=== PATIENT | female | born 1950 | race Caucasian/White ===

== ENCOUNTER 2017-12-03 14:37 | Inpatient (IN) | payer BC, SELFPAY ==
[2017-12-03] VITALS (9 sets, daily range): BP systolic 109–152; BP diastolic 62–77; PULSE 54–76; RESP 15–20; TEMP 35.3–36.7; O2SAT 93–95; BMI 40.4; BMI 39.9
--- NOTE | 2017-12-03 15:13 | CT_ITS ---
STUDY: CT BRAIN WITHOUT CONTRAST REASON FOR EXAM: Female, 67 years old. Left-sided numbness and weakness. Unsteady gait. RADIATION DOSAGE (If Supplied By Facility): CTDIvol = ( 44.99 ) mGy, DLP = ( 829.85 ) mGycm TECHNIQUE: Transaxial CT imaging of the brain was performed without administration of intravenous contrast material. Individualized dose optimization techniques were used for this CT. COMPARISON: None. FINDINGS: Normal soft tissue structures. There is hyperostosis frontalis internus. There is mild cerebral atrophy with widening of the extra-axial spaces and ventricular dilatation. Normal white matter tracts of the cerebral hemispheres. Normal basal ganglia and thalami. Normal brainstem. Normal cerebellum. There is no intracranial hemorrhage. There are no findings of an acute ischemic infarction. Atherosclerotic calcification of the cavernous portions of the internal carotid arteries bilaterally. Normal visualized paranasal sinuses. CT/Brain/Head without Contrast IMPRESSION: Chronic involutional changes of the brain. Electronically Signed: Wei Kohler MD at 15:56 EST Tel [phone], Service support ,
--- NOTE | 2017-12-03 15:14 | EKG12_ITS ---
Test Reason : NEURO SX Blood Pressure : / mmHG Vent. Rate : 058 BPM Atrial Rate : 058 BPM P-R Int : 174 ms QRS Dur : 086 ms QT Int : 424 ms P-R-T Axes : 036 013 033 degrees QTc Int : 416 ms Sinus bradycardia Otherwise normal ECG Confirmed by GEORGIA LAWSON, BUNNY ([id number]), editor in chief ZULEYKA PRAKASH ([id number]) on 12/10/2017 8:32:14 AM Referred By: CARLEY Confirmed By:BUNNY HO MD
[2017-12-03] MEDS: 0.9% Normal Saline 1,000 ML 150 ML IV (15:30)
--- NOTE | 2017-12-03 15:31 | NURSING ---
NO OLD EKGS
--- NOTE | 2017-12-03 15:35 | ED.VISSUMM ---
- ER Visit Summary Date of Service: 12/03/17 Chief Complaint: Neuro symptoms History of Present Illness: The patient is a 67 F who states that 3 weeks ago she was seen at [facility] in [place] with left-sided neck pain. CT was reportedly negative. She went to her chiropractor and shortly after an adjustment developed left-sided numbness and difficulty sensing hot and cold on her right side. Patient went back to the ER and was admitted for CT and MRI imaging. Patient states her symptoms resolved after approximately 48 hours. She was told she did not have evidence of a stroke. She recently went to [place] and returned home yesterday. While on the plane she developed left-sided neck pain followed by numbness and weakness the left side of her body, hot and cold decreased sensation on the right, and difficulty with gait. Her friend describes her trying to walk as swinging her legs from the hips. This throws her off balance. The also noted left eye droop earlier today that is now improved. Patient did not feel comfortable driving home with the symptoms today so they presented to the ER for evaluation. Physical Examination: Vital signs are significant for blood pressure 152/77. Head and neck examination is grossly unremarkable. Heart is regular rate and rhythm. Lung sounds are clear. Abdomen is soft nontender. Neuro exam reveals an NIH score of 1. She receives one point for decreased sensation to light touch in the left leg. Test Results: CBC and coags are normal. Chemistry studies are significant for a BUN of 34 and creatinine 1.32. Glucose is 189. Troponin is less than 0.02. Noncontrast head CT reveals chronic involutional changes. EKG is unremarkable. Emergency Department Course and Treatment: I was able to get records from the hospital in [place]. Patient had CT scans of the head along with CTAs of the head and neck. She also had MRIs of the neck and brain along with MRV's. The only acute abnormality noted was a slight increased uptake at the level of C2. There is no evidence of stroke. Findings were discussed with Dr. Castillo, on-call for neurology. Clinical suspicion at this time for acute stroke is low. The patient, however, has not been able to ambulate correctly and I have concerns about her driving. Patient will be admitted for repeat imaging studies. Patient and friend at bedside are comfortable with this plan. Treatment Plan: [] Disposition: Admit Impression: 1. Reported numbness 2. Difficulty with ambulation This note was generated with [employer] dictation software. It may contain incorrect words, spelling, and punctuation that were not noted in review of the chart prior to signing ED Disposition - Plan for ED Patient: Disposition: Acute Care Hospital [facility] Chief Complaint: Neuro S/Sx
--- NOTE | 2017-12-03 15:39 | ED.DCSUM_ITS ---
- ER Visit Summary Date of Service: 12/03/17 Chief Complaint: Neuro symptoms History of Present Illness: The patient is a 67 F who states that 3 weeks ago she was seen at [facility] in [place] with left-sided neck pain. CT was reportedly negative. She went to her chiropractor and shortly after an adjustment developed left-sided numbness and difficulty sensing hot and cold on her right side. Patient went back to the ER and was admitted for CT and MRI imaging. Patient states her symptoms resolved after approximately 48 hours. She was told she did not have evidence of a stroke. She recently went to [place] and returned home yesterday. While on the plane she developed left- sided neck pain followed by numbness and weakness the left side of her body, hot and cold decreased sensation on the right, and difficulty with gait. Her friend describes her trying to walk as swinging her legs from the hips. This throws her off balance. The also noted left eye droop earlier today that is now improved. Patient did not feel comfortable driving home with the symptoms today so they presented to the ER for evaluation. Physical Examination: Vital signs are significant for blood pressure 152/77. Head and neck examination is grossly unremarkable. Heart is regular rate and rhythm. Lung sounds are clear. Abdomen is soft nontender. Neuro exam reveals an NIH score of 1. She receives one point for decreased sensation to light touch in the left leg. Test Results: CBC and coags are normal. Chemistry studies are significant for a BUN of 34 and creatinine 1.32. Glucose is 189. Troponin is less than 0.02. Noncontrast head CT reveals chronic involutional changes. EKG is unremarkable. Emergency Department Course and Treatment: I was able to get records from the hospital in [place]. Patient had CT scans of the head along with CTAs of the head and neck. She also had MRIs of the neck and brain along with MRV's. The only acute abnormality noted was a slight increased uptake at the level of C2. There is no evidence of stroke. Findings were discussed with Dr. Castillo, on-call for neurology. Clinical suspicion at this time for acute stroke is low. The patient, however, has not been able to ambulate correctly and I have concerns about her driving. Patient will be admitted for repeat imaging studies. Patient and friend at bedside are comfortable with this plan. Treatment Plan: [] Disposition: Admit Impression: 1. Reported numbness 2. Difficulty with ambulation This note was generated with [employer] dictation software. It may contain incorrect words, spelling, and punctuation that were not noted in review of the chart prior to signing ED Disposition - Plan for ED Patient: Disposition: Acute Care Hospital [facility] Chief Complaint: Neuro S/Sx
[2017-12-03 15:41] LABS: Bedside Glucose 180 mg/dL (70-110)
[2017-12-03 15:44] LABS: Absolute Lymphocyte Count 2.58 X10^3/ul (0.83-4.51); Absolute Neutrophil Count 6.6 X10^3/uL (2.0-7.7); Basophil# 0.04 X10^3/uL; Basophil% 0.4 % (0-1); Eosinophils% 2.9 % (0-5); Hematocrit 42.1 % (37-47); Hemoglobin 13.6 g/dl (12.0-15.0); Lymphocyte # 2.58 X10^3/ul (4.0); Lymphocyte % 24.9 % (19-41); Mean Corp Hgb Conc 32.3 g/gl (32-36); Mean Corpuscular Hgb 29.9 pg (27.0-32.0); Mean Corpuscular Volume 92.5 fL (81-99); Mean Platelet Vol. 10.4 fl (6.2-12.0); Monocyte# 0.79 X10^3/uL; Monocyte% 7.6 % (0-10); Neutrophil # 6.62 X10^3/uL (2.7-7.7); Platelet Count 320 K/mm3 (150-450); RBC Distribution Width SD 43.5 fl (35.1-43.9); Red Blood Count 4.55 M/mm3 (4.2-5.4); White Blood Count 10.4 K/mm3 (4.4-11.0)
[2017-12-03 15:45] LABS: POSITIVE COUNT NO; POSITIVE DIFFERENTIAL NO; POSITIVE MORPHOLOGY NO
[2017-12-03 15:53] LABS: Anion Gap 6 (5-15); BUN 34 mg/dL (7-18); BUN/Creat Ratio 25.8 RATIO (10-20); Calcium,Total 9.8 mg/dL (8.5-10.1); Chloride 107 mmol/L (98-107); Creatinine, Serum 1.32 mg/dL (0.55-1.02); EST Glomerular Filtration Rate 43 mL/min (>60); Est Glom Filt Rate - Afr Amer 52 mL/min (>60); Estimated Creatinine Clearance 32.06 ml/min; Glucose 189 mg/dL (70-110); Potassium 3.8 mmol/L (3.5-5.1); Sodium Level 142 mmol/L (136-145)
[2017-12-03 15:55] LABS: Prothrombin Time (Protime)PT. 12.7 SECONDS (11.7-14.9)
[2017-12-03 15:56] LABS: Partial Thromboplast Time 24.8 Seconds (24.1-36.2)
--- NOTE | 2017-12-03 17:16 | NURSING ---
PCU NECK PAIN, LEFT SIDED WEAKNESS UZAIR
--- NOTE | 2017-12-03 18:07 | HP.PCM_ITS ---
Problem List (1) Diabetes mellitus type 2 in obese Status: Chronic (2) Neck pain Status: Chronic (3) Left leg weakness and right numbness Status: Acute (4) Dyslipidemia Status: Chronic (5) Urge urinary incontinence Status: Chronic (6) Hypertension Status: Chronic (7) Hypothyroidism (acquired) Status: Chronic (8) GERD (gastroesophageal reflux disease) Status: Chronic History of Present Illness Date of Admission: 12/03/17 Chief Complaint: Multiple neurological symptoms The patient is a 67 year old F with multiple comorbidities as mentioned above came to [facility] ER for left-sided leg weakness and right-sided numbness. Patient was admitted about [address] [facility] with headache and left-sided neck pain and left-sided numbness and decreased hot and cold sensation on the right side. At that time, patient had CT head and CTA of head and neck which did not show acute abnormality. Besides that, patient also had MRI brain without contrast and MRI C-spine with and without contrast. MRI brain without contrast shows mild nonspecific changes in deep and subcortical white matter suggestive of demyelination possible ischemia.. MRI C-spine shows abnormal T2 signal within cord at C2 level with minimal enhancement suspicion for demyelination Here in the ER, CT brain did not show acute change. EKG sinus bradycardia at 58 bpm. ED physician discussed with Dr. Castillo. [] Past Medical History Past Medical History (Chronic Problems): Chronic Problems Diabetes mellitus type 2 in obese (Chronic) Neck pain (Chronic) Dyslipidemia (Chronic) Urge urinary incontinence (Chronic) Hypertension (Chronic) Hypothyroidism (acquired) (Chronic) GERD (gastroesophageal reflux disease) (Chronic) Allergies Penicillins Allergy (Verified 12/03/17 14:41) Rash Sulfa (Sulfonamide Antibiotics) Allergy (Verified 12/03/17 14:41) Rash Home Medications: Ambulatory Orders Medication Instructions Recorded Aspirin [Aspirin, Baby] 81 mg PO DAILY@0800 12/03/17 Cetirizine HCl [Zyrtec] 10 mg PO QHS 12/03/17 Esomeprazole Mag Trihydrate 40 mg PO DAILY 12/03/17 [Nexium] Fenofibrate,Micronized [Antara] 130 mg PO DAILY 12/03/17 Hydrochlorothiazide [Hctz] 12.5 mg PO DAILY 12/03/17 Insulin Detemir [Levemir FlexPen] 50 mg SQ QHS 12/03/17 Insulin Detemir [Levemir] 20 unit SQ DAILY 12/03/17 Levothyroxine Sodium 75 mcg PO DAILY 12/03/17 Lisinopril [Zestril] 20 mg PO DAILY 12/03/17 Metformin(XR) [Glucophage Xr] 500 mg PO BIDCM 12/03/17 Mometasone Furoate [Nasonex] 1 spray NASAL QHS 12/03/17 Montelukast [Singulair] 10 mg PO QHS 12/03/17 Omeprazole [Omeprazole] 20 mg PO DAILY 12/03/17 Ranitidine [Zantac] 300 mg PO QHS 12/03/17 Rosuvastatin Calcium [Crestor] 10 mg PO QHS 12/03/17 Solifenacin Succinate [Vesicare] 10 mg PO DAILY 12/03/17 Smoking Status: Never smoker Alcohol: None Drugs: None - *Family History Paternal History Items: No pertinent history - Department neurological disease Review of Systems Constitutional: Denies: Chills, Fever, Weight Change HEENT: Denies: Head Aches, Sinus Congestion, Sinus Drainage Cardiovascular: Denies: Chest Pain, Palpitations Respiratory: Denies: Cough, Shortness of breath at rest, Sputum production Gastrointestinal: Denies: Abdominal Pain, Nausea, Vomiting Genitourinary: Denies: Dysuria Musculoskeletal: Denies: Joint Pain, Joint Tenderness Skin: Denies: Rash, Wounds Neurological: Reports: Balance problems, Focal weakness, Incoordination, Numbness, Tingling. Denies: Blurred vision, Double vision, Change in Speech, Slurred speech Psychiatric: Denies: Anxiety, Depression, Homicidal Ideations, Suicidal Ideations Hematologic/ Lymphatic: Denies: Easy Bruising, Easy Bleeding VTE Information - Inpt Only VTE Present on Admission: No VTE Mechan Device Prophylaxis: SCD's VTE Pharm Prophylaxis ordered?: Yes Patient Problems: Active and Suspected Problems Left leg weakness and right numbness (Acute) - Physical Exam General: Alert, Oriented x3, Cooperative HEENT: Atraumatic, PERRLA, EOMI, Normocephalic Neck: Supple, No JVD, Negative Carotid Bruits Lungs: No rhonchi, No wheeze, No rales, Diminished Cardiovascular: Regular rate, Regular Rhythm, Normal S1, Normal S2, Murmur - Grade 2/6 soft systolic murmur present over aortic area Abdomen: Bowel Sounds Present, Soft, Non Tender, Non-Distended Extremities: Capillary Refill Less than 3 Seconds, Edema Skin: No rashes, No breakdown Musculoskeletal: No Tenderness to Palpation of Joints or Extremities, Arthritic Changes Neurological: Cranial nerves II-XII grossly intact, - - Muscle strength in left leg is 3/5, right leg 4+/5, in both upper extremity 5/5. Decreased sensation to touch on the right leg and left side of the face. DTR 2/4 at major joints Psych/Mental Status: Normal Affect, Appropriate Vital Signs Temp Pulse Resp BP Pulse Ox 95.6 F L 58 L 18 129/64 H 94 12/03/17 14:38 12/03/17 16:49 12/03/17 16:49 12/03/17 16:49 12/03/17 16:49 Oxygen Delivery Method Room Air Weight: 213 lb 13.574 oz Body Mass Index (BMI) 40.4 Finger Stick Blood Glucose 180 Laboratory Tests Past 24 Hrs 12/03/17 12/03/17 12/03/17 15:20 15:20 15:20 WBC 10.4 RBC 4.55 Hgb 13.6 Hct 42.1 MCV 92.5 MCH 29.9 MCHC 32.3 RDW 13.0 RDW Differential 43.5 Plt Count 320 MPV 10.4 Immature Gran % (Auto) 0.200 Neut % (Auto) 64.0 Lymph % (Auto) 24.9 [place] % (Auto) 7.6 Eos % (Auto) 2.9 Baso % (Auto) 0.4 Absolute Neuts (auto) 6.6 Absolute Lymphs (auto) 2.58 Total Counted Not Reportable PT 12.7 INR 1.0 APTT 24.8 Sodium 142 Potassium 3.8 Chloride 107 Carbon Dioxide 29.0 Anion Gap 6 BUN 34 H Creatinine 1.32 H Estim Creat Clear Calc 32.06 Est GFR (MDRD) Af Amer 52 L Est GFR (MDRD) Non-Af 43 L BUN/Creatinine Ratio 25.8 H Glucose 189 H Calcium 9.8 Troponin I < 0.02 POC Glucose 12/03/17 15:36 POC Glucose 180 H Assessment/Plan Active and Suspected Problems Left leg weakness and right numbness (Acute) The patient is a 67 year old F with multiple comorbidities as mentioned above came to [facility] ER for left-sided leg weakness and right-sided numbness. Patient was admitted about [address] [facility] with headache and left-sided neck pain and left-sided numbness and decreased hot and cold sensation on the right side. At that time, patient had CT head and CTA of head and neck which did not show acute abnormality. Besides that, patient also had MRI brain without contrast and MRI C-spine with and without contrast. MRI brain without contrast shows mild nonspecific changes in deep and subcortical white matter suggestive of demyelination possible ischemia.. MRI C-spine shows abnormal T2 signal within cord at C2 level with minimal enhancement suspicion for demyelination Here in the ER, CT brain did not show acute change. EKG sinus bradycardia at 58 bpm. 1. Asymmetric neurological findings, diagnosis unclear but suspicion of MS or spinal neuropathy/polyneuropathy: Patient is being admitted on the PCU floor. Discussed with the neurologist Dr. Castillo and agree for repeat MRI brain, MRI C-spine and MRI thoracic spine with and without contrast. Later on, if it is nondiagnostic can do fluoroscopy-guided LP tomorrow. The neurologist can order tomorrow morning depending on his discretion. For now does not look like stroke. Will follow neuro check. On aspirin and statin. 2. Headache and neck pain: Patient had 3 weeks of headache diffuse prior to the onset of numbness and weakness in October during previous admission. She also had neck pain got better after chiropractor adjustment. PT and OT ordered 3. Mild prerenal azotemia possibly due to diuretic with possible CKD stage III: Hold HCTZ. On IV fluid normal saline. Creatinine is 1.32. Does not know the baseline. COPD: No acute exacerbation. Patient is not a smoker but her both parents were changes smoker. Continue home inhaler. 4. Diabetes mellitus with hypoglycemia with possibility of diabetic neuropathy : On Accu-Chek before meals at bedtime and cover with NovoLog sliding scale. A1c tomorrow a.m. Patient on Levemir and will continue it. 5. Hypothyroidism: Free T4 and TSH ordered. On levothyroxine. 6. Other comorbidities include hypertension, dyslipidemia, GERD and urge urinary incontinence: Home medications continued. Multiple comorbidities complicates the present care. Laboratory Results 12/03/17 15:20: WBC 10.4, RBC 4.55, Hgb 13.6, Hct 42.1, MCV 92.5, MCH 29.9, MCHC 32.3, RDW 13.0, RDW Differential 43.5, Plt Count 320, MPV 10.4, Immature Gran % (Auto) 0.200, Neut % (Auto) 64.0, Lymph % (Auto) 24.9, [place] % (Auto) 7.6 , Eos % (Auto) 2.9, Baso % (Auto) 0.4, Absolute Neuts (auto) 6.6, Absolute Lymphs (auto) 2.58, Total Counted Not Reportable 12/03/17 15:20: PT 12.7, INR 1.0, APTT 24.8 12/03/17 15:20: Sodium 142, Potassium 3.8, Chloride 107, Carbon Dioxide 29.0, Anion Gap 6, BUN 34 H, Creatinine 1.32 H, Estim Creat Clear Calc 32.06, Est GFR (MDRD) Af Amer 52 L, Est GFR (MDRD) Non-Af 43 L, BUN/Creatinine Ratio 25.8 H, Glucose 189 H, Calcium 9.8, Troponin I < 0.02 12/03/17 15:36: POC Glucose 180 H ED physician discussed with Dr. Castillo. Clinical Impression(s) from Imaging Studies Brain CT 12/03/17 15:13 IMPRESSION: Chronic involutional changes of the brain. Electronically Signed: Wei Kohler MD at 15:56 EST Tel [phone], Service support , Code Visit Inpatient E&M: 50884 Init Hosp L3
--- NOTE | 2017-12-03 21:05 | RAD_ITS ---
STUDY: X-RAY CHEST REASON FOR EXAM: Female, 67 years old. COPD TECHNIQUE: PA and lateral views of the chest. COMPARISON: None. FINDINGS: Allowing for summation of shadows is a 1 cm focal density just above the right hemidiaphragm . There is elevation of the right hemidiaphragm. There is no demonstrated pleural abnormality. Normal size heart. Normal mediastinum and nazario. Normal visualized pulmonary arteries. There is atherosclerotic calcification of the aortic arch with tortuosity. There are diffuse degenerative changes of the visualized thoracic spine. Normal visualized ribs, clavicles, and shoulders. There is no demonstrated abnormality of the visualized soft tissue structures of the upper abdomen. RAD/Chest PA and Lateral IMPRESSION: Right middle lobe focal opacity measuring approximately 1 cm for which further evaluation with a noncontrast chest CT is recommended when clinically appropriate. Differential includes, summation of shadows versus inflammatory or potentially malignant pulmonary nodule. Electronically Signed: Tatyana Parker MD at 21:58 EST Tel , Service support ,
[2017-12-03] MEDS: Famotidine 20 MG Tablet PO (21:35)
[2017-12-03] MEDS: Enoxaparin 40 MG/0.4 ML Syringe SC (21:35)
[2017-12-03] MEDS: Montelukast 10 MG Tablet PO (21:35)
[2017-12-03] MEDS: Aspirin 81 MG TAB.CHEW PO (21:35)
[2017-12-03 21:39] LABS: AST(SGOT) 18 U/L (15-37); Alanine Aminotransfer ALT/SGPT 27 U/L (13-56); Albumin, Serum 3.6 g/dL (3.2-5.0); Alkaline Phosphatase 50 U/L (45-117); Bilirubin, Direct 0.13 mg/dL (0.00-0.30); Globulin 3.9 g/dL (2.2-4.2); Protein, Total 7.5 g/dL (6.4-8.2)
[2017-12-03] MEDS: Loratadine 10 MG Tablet PO (22:17)
[2017-12-03 22:45] LABS: Amphetamine Urine VISTA NEGATIVE (<1000 ng/mL); Barbiturate Urine VISTA NEGATIVE (< 200 ng/mL); Benzodiazepine Urine VISTA NEGATIVE (< 200 ng/mL); Cocaine Urine VISTA NEGATIVE (< 300 ng/mL); Ecstacy Urine VISTA NEGATIVE (< 500 ng/mL); Methadone Urine VISTA NEGATIVE (< 300 ng/mL); PCP Urine VISTA NEGATIVE (< 25 ng/mL); THC Urine VISTA NEGATIVE (< 50 ng/mL); Vista UDS pH Range 5
[2017-12-03 23:45] LABS: Bedside Glucose 195 mg/dL (70-110)
[2017-12-04] VITALS (11 sets, daily range): BP systolic 131–147; BP diastolic 59–75; PULSE 51–64; RESP 16–20; TEMP 36.3–36.9; O2SAT 93–97; BMI 39.9
[2017-12-04] MEDS: 0.9% Normal Saline 1,000 ML 100 ML IV ×3 (01:55→23:51)
[2017-12-04] MEDS: Levothyroxine 75 MCG Tablet PO (06:57)
--- NOTE | 2017-12-04 06:57 | MRI_ITS ---
STUDY: MRI BRAIN WITH AND WITHOUT CONTRAST REASON FOR EXAM: Female, 67 years old. Left leg weakness and right-sided numbness. Unsteady gait. TECHNIQUE: Standardized multiplanar fat and water weighted pulse sequences were obtained. 10 ml of Gadavist contrast material was administered intravenously for the contrast portion of the examination. COMPARISON: CT brain without contrast 12/03/2017. FINDINGS: No restricted diffusion to suspect acute or subacute ischemic infarct. Normal size of the ventricles and extra-axial spaces for the patient's age. Tiny subcortical white matter T2 FLAIR hyperintensity foci in both cerebral hemispheres are nonspecific. They may be secondary to microvascular disease. Normal bilateral basal ganglia. Normal thalami. There is no extra-axial fluid accumulation. Normal flow voids within the major intracranial circulation suggesting patency by spin echo criteria. Normal venous enhancement. There is no enhancing intra-axial or extra-axial abnormality. Normal sella turcica, pituitary gland, infundibular stalk, optic chiasm and hypothalamus. Normal tectal plate and pineal gland. Normal midbrain, don and medulla. Normal cerebellum. Normal basal cisterns. Normal bilateral temporal bones. Normal bilateral internal auditory canals. No demonstrated orbital abnormality, within the constraints of a routine brain study. Normal visualized paranasal sinuses. Normal calvarium and skull base. Normal visualized soft tissue structures. Normal visualized upper cervical spine. MRI/Brain W/WO Contrast IMPRESSION: 1. No MRI evidence of acute or subacute ischemic infarct. 2. Multiple small subcortical white matter T2 FLAIR hyperintensity foci in both cerebral hemispheres are nonspecific. They may be secondary to microvascular disease. 3. No MRI evidence of enhancing lesions intraaxially or extra-axially. Electronically Signed: Jonathon Rodriguez MD at 10:31 EST , Service support ,
--- NOTE | 2017-12-04 06:57 | MRI_ITS ---
STUDY: MRI CERVICAL SPINE WITH AND WITHOUT CONTRAST REASON FOR EXAM: Female, 67 years old. Left leg weakness. Right-sided numbness. Unsteady gait. TECHNIQUE: Standardized fat and water weighted pulse sequences were obtained in the sagittal and axial following I.V. administration of 10 ml of Gadavist contrast material. COMPARISON: None FINDINGS: Normal foramen magnum and brainstem-cervical cord junction. Normal craniovertebral junction. Normal anterior atlantoaxial articulation. Normal odontoid process. Normal cervical lordosis. Normal vertebral bodies and posterior osseous elements. C2-3: Normal endplates. Normal disc height, signal and morphology. Normal central canal and intervertebral neural foramina. C3-4: Normal endplates. Normal disc height, signal and morphology. Normal central canal and intervertebral neural foramina. C4-5: Normal endplates. Normal disc height, signal and morphology. Normal central canal and intervertebral neural foramina. C5-6: Tiny Schmorl's node in the central aspect of the C5 inferior endplate. Normal C6 superior endplate.. Minimal disc space height narrowing. No extruded disc fragment. Normal central canal and bilateral intervertebral neural foramina. C6-7: Normal endplates. Minimal disc space height narrowing. Tiny posterior annular bulging disc. Normal central canal and bilateral intervertebral neural foramina. C7-T1: Normal endplates. Normal disc height, signal and morphology. Normal central canal and intervertebral neural foramina. Faint linear T2 hyperintensity in the anterior aspect of the spinal cord with faint linear contrast enhancement (series 2, image 8; series 4, images 8; series 7, images 145-148). Normal visualized soft tissue structures. MRI/Spine Cervical W/WO Contrast IMPRESSION: 1. No MRI evidence of cervical extruded disc fragment, spinal stenosis or cervical nerve root displacement. 2. Abnormal T2 bleeding or high signal intensity of the cervical spinal cord at the C2 vertebral body level with faint linear contrast enhancement. Etiology is unknown. Possible enhancing linear MS plaque. Atypical for neoplasm due to its linear enhancement and linear contour. CSF correlation may be helpful for further evaluation. Electronically Signed: Jonathon Rodriguez MD at 9:48 EST , Service support ,
--- NOTE | 2017-12-04 06:57 | MRI_ITS ---
STUDY: MRI THORACIC SPINE WITH AND WITHOUT CONTRAST REASON FOR EXAM: Female, 67 years old. LEFT LEG WEAKNESS, RT SIDED NUMBNESS, UNSTEADY GAIT. TECHNIQUE: 10 ml of Gadavist was administered intravenously for the contrast portion of the examination. COMPARISON: None. FINDINGS: Normal kyphosis of the thoracic spine. There is no substantial scoliosis. T1-2, T2-3, T3-4, T4-5, T5-6, T6-7, T7-8, T8-9, T9-10, T10-11, T11-12: There is diffuse disc desiccation and intervertebral disc space narrowing with endplate spondylosis without significant central canal or foraminal stenosis. Normal visualized thoracic cord. The soft tissue structures are unremarkable. There is no enhancing abnormality. MRI/Spine Thoracic W/WO Contrast IMPRESSION: Mild degenerative changes. Electronically Signed: Deangelo Alves MD at 10:45 EST Tel , Service support ,
[2017-12-04 06:58] LABS: Anion Gap 5 (5-15); BUN 25 mg/dL (7-18); BUN/Creat Ratio 22.9 RATIO (10-20); Calcium,Total 8.9 mg/dL (8.5-10.1); Chloride 110 mmol/L (98-107); Cholesterol 111 mg/dL (200); Creatinine, Serum 1.09 mg/dL (0.55-1.02); EST Glomerular Filtration Rate 53 mL/min (>60); Est Glom Filt Rate - Afr Amer 65 mL/min (>60); Estimated Creatinine Clearance 38.83 ml/min; Glucose 80 mg/dL (70-110); High Density Lipoprotein 43 mg/dL; Potassium 3.6 mmol/L (3.5-5.1); Sodium Level 146 mmol/L (136-145); T4 Free Direct 1.25 ng/dL (0.76-1.46); Thyroid Stim Hormone (TSH) 0.86 uIU/mL (0.358-3.74); Triglycerides 148 mg/dL; Very Low Density Lipoprotein 30 mg/dL (5-40)
[2017-12-04 07:16] LABS: Bedside Glucose 74 mg/dL (70-110)
[2017-12-04] MEDS: Fenofibrate 145 MG Tablet PO (10:01)
[2017-12-04] MEDS: Atorvastatin Calcium 40 MG Tablet PO (10:01)
[2017-12-04] MEDS: Famotidine 20 MG Tablet PO ×2 (10:01→20:52)
[2017-12-04] MEDS: Pantoprazole Sodium 40 MG Tablet PO (10:01)
[2017-12-04] MEDS: Aspirin 81 MG TAB.CHEW PO (10:01)
[2017-12-04] MEDS: Tolterodine Tartrate 4 MG CAP.SA PO (10:01)
[2017-12-04] MEDS: Lisinopril 20 MG Tablet PO (10:02)
[2017-12-04] MEDS: Enoxaparin 40 MG/0.4 ML Syringe SC (10:02)
--- NOTE | 2017-12-04 10:13 | NURSING ---
pt just back to floor from testing, NHISS completed at this time and VS completed at this time.
--- NOTE | 2017-12-04 11:00 | RAD_ITS ---
STUDY: X-RAY - LEFT SHOULDER REASON FOR EXAM: Female, 67 years old. Shoulder pain. TECHNIQUE: 4 view(s) of the shoulder. COMPARISON: None. FINDINGS: Normal glenohumeral articulation. There is degenerative arthrosis of the acromioclavicular joint without inferior osseous spur formation. Normal acromion. Normal humeral head and visualized proximal humerus. The soft tissue structures are unremarkable. Normal visualized pulmonary apex. RAD/Shoulder min 2 Views IMPRESSION: Arthritic changes of the acromioclavicular joint. Electronically Signed: Wei Kohler MD at 11:24 EST Tel [phone], Service support ,
[2017-12-04 12:51] LABS: Bedside Glucose 194 mg/dL (70-110)
--- NOTE | 2017-12-04 13:29 | PCM.PROGNOTE ---
<Barney Carranza - Last Filed: 12/04/17 13:29> Patient Problems: Active and Suspected Problems Left leg weakness and right numbness (Acute) Left sided numbness (Acute) Subjective: Patient reports that her symptoms have significantly improved. Currently she is not complaining of any neck pain. She has no numbness or tingling in her lower extremities. She was noting more weakness in her legs with difficulty walking, and some weakness in her arms and hands as well. Currently she denies any numbness or tingling in her upper extremities either. She does have a neurologist that she follows with in [place]. She denies any dizziness, lightheadedness or double vision. No slurring of her speech. She states she is concerned that she has a viral infection as she was just at a wedding and 3 people are hospitalized who are attending, however the other 2 people are hospitalized different things, one for PE and one for heart attack. - Physical Exam General: Alert, Oriented x3, Cooperative HEENT: Atraumatic, PERRLA, EOMI, Normocephalic Neck: Supple, No JVD, Negative Carotid Bruits Lungs: Clear to auscultation, Normal air movement Cardiovascular: Regular rate, Murmur - 2/6 systolic murmur best heard over LSB Abdomen: Bowel Sounds Present, Soft, Non Tender Extremities: No edema, Capillary Refill Less than 3 Seconds Skin: No rashes, No breakdown Musculoskeletal: No Tenderness to Palpation of Joints or Extremities Neurological: Cranial nerves II-XII grossly intact, - - Spurling's maneuver is negative. Deep tendon reflexes are equal and normal and the biceps tendon, brachial radialis, patellar, and Achilles tendon. Negative Babinski. No nystagmus appreciated. Sensation testing in the face, arms, legs, fingers and toes is intact. Psych/Mental Status: Normal Affect, Appropriate, Alert and oriented to time, place, person, mood and affect Vital Signs Temp Pulse Resp BP Pulse Ox 98.4 F 59 L 16 142/72 H 97 12/04/17 10:14 12/04/17 11:08 12/04/17 10:14 12/04/17 10:14 12/04/17 10:14 Oxygen Delivery Method Room Air Weight: 95.935 kg Body Mass Index (BMI) 39.9 Intake and Output for Last 24 Hours 12/02/17 12/03/17 12/04/17 23:59 23:59 23:59 Intake Total 491 / 491 1001 / 1001 Output Total 150 / 150 200 / 200 Balance 341 / 341 801 / 801 Laboratory Tests Past 24 Hrs 12/03/17 12/03/17 12/04/17 21:04 21:10 06:00 Sodium 146 H Potassium 3.6 Chloride 110 H Carbon Dioxide 31.0 Anion Gap 5 BUN 25 H Creatinine 1.09 H Estim Creat Clear Calc 38.83 Est GFR (MDRD) Af Amer 65 Est GFR (MDRD) Non-Af 53 L BUN/Creatinine Ratio 22.9 H Glucose 80 Hemoglobin A1c Calcium 8.9 Total Bilirubin 0.30 Direct Bilirubin 0.13 AST 18 ALT 27 Alkaline Phosphatase 50 Troponin I < 0.02 Total Protein 7.5 Albumin 3.6 Globulin 3.9 Triglycerides 148 Cholesterol 111 LDL Cholesterol 38 VLDL Cholesterol 30 HDL Cholesterol 43 TSH 0.86 Free T4 1.25 Urine Opiates Screen NEGATIVE Urine Methadone Screen NEGATIVE Ur Barbiturates Screen NEGATIVE Ur Phencyclidine Scrn NEGATIVE Ur Amphetamines Screen NEGATIVE U Methamphetamin-MDMA NEGATIVE U Benzodiazepines Scrn NEGATIVE Urine Cocaine Screen NEGATIVE U Cannabinoids Screen NEGATIVE Ur Drug Screen Comment 12/04/17 06:00 Sodium Potassium Chloride Carbon Dioxide Anion Gap BUN Creatinine Estim Creat Clear Calc Est GFR (MDRD) Af Amer Est GFR (MDRD) Non-Af BUN/Creatinine Ratio Glucose Hemoglobin A1c 8.0 H Calcium Total Bilirubin Direct Bilirubin AST ALT Alkaline Phosphatase Troponin I Total Protein Albumin Globulin Triglycerides Cholesterol LDL Cholesterol VLDL Cholesterol HDL Cholesterol TSH Free T4 Urine Opiates Screen Urine Methadone Screen Ur Barbiturates Screen Ur Phencyclidine Scrn Ur Amphetamines Screen U Methamphetamin-MDMA U Benzodiazepines Scrn Urine Cocaine Screen U Cannabinoids Screen Ur Drug Screen Comment POC Glucose 12/04/17 12/04/17 12/03/17 12:41 06:55 22:00 POC Glucose 194 H 74 195 H Assessment/Plan Active and Suspected Problems Left leg weakness and right numbness (Acute) Left sided numbness (Acute) 1. Upper and lower extremity weakness and numbness, waxes and wanes- neurology is consulted. Today her neuro exam was unremarkable. MRI of her brain does not show any evidence of ischemic infarct, however it shows multiple small subcortical white matter T2 FLAIR hyperintensity foci in both cerebral hemispheres. The MRI of her C-spine shows abnormal T2 bleeding or high signal intensity of the C-spine cord at the C2 vertebral body level with faint linear contrast enhancement, possible enhancing linear MS plaque, atypical for neoplasm. MRI of the T-spine shows mild degenerative changes, and a left shoulder x-ray shows arthritic changes at the AC joint. CT brain with chronic changes. TSH and free T4 are normal. -Lumbar puncture will be obtained per neurology. -Possibly some underlying polyneuropathy secondary to poorly controlled diabetes as well -On aspirin and statin 2. Elevated creatinine-baseline unknown-improved overnight, will trend as she is receiving IV contrast. Continue IV fluids for now. 3. Type 2 diabetes-hemoglobin A1c is 8.0 representing poor control. Her blood sugar has been fluctuant while here, will continue current regimen with the addition of SSI. 4. hyperlipidemia-LDL is at goal. Continue current medications. 5. Hypothyroidism - continue synthroid 6. Hypertension-stable with hydrochlorothiazide held. DVT prophylaxis: Lovenox DC planning: PTOT This patient was seen by Barney Carranza PA-C under the supervision of Doctor Fawn. <Chris Augustine - Last Filed: 12/04/17 16:48> - Physical Exam Vital Signs Temp Pulse Resp BP Pulse Ox 97.9 F 55 L 16 131/69 H 97 12/04/17 14:14 12/04/17 15:29 12/04/17 14:14 12/04/17 14:14 12/04/17 14:14 Oxygen Delivery Method Room Air Weight: 95.935 kg Body Mass Index (BMI) 39.9 Intake and Output for Last 24 Hours 12/02/17 12/03/17 12/04/17 23:59 23:59 23:59 Intake Total 491 / 491 1001 / 1001 Output Total 150 / 150 200 / 200 Balance 341 / 341 801 / 801 Laboratory Tests Past 24 Hrs 12/03/17 12/03/17 12/04/17 21:04 21:10 06:00 Sodium 146 H Potassium 3.6 Chloride 110 H Carbon Dioxide 31.0 Anion Gap 5 BUN 25 H Creatinine 1.09 H Estim Creat Clear Calc 38.83 Est GFR (MDRD) Af Amer 65 Est GFR (MDRD) Non-Af 53 L BUN/Creatinine Ratio 22.9 H Glucose 80 Hemoglobin A1c Calcium 8.9 Total Bilirubin 0.30 Direct Bilirubin 0.13 AST 18 ALT 27 Alkaline Phosphatase 50 Troponin I < 0.02 Total Protein 7.5 Albumin 3.6 Globulin 3.9 Triglycerides 148 Cholesterol 111 LDL Cholesterol 38 VLDL Cholesterol 30 HDL Cholesterol 43 TSH 0.86 Free T4 1.25 Urine Opiates Screen NEGATIVE Urine Methadone Screen NEGATIVE Ur Barbiturates Screen NEGATIVE Ur Phencyclidine Scrn NEGATIVE Ur Amphetamines Screen NEGATIVE U Methamphetamin-MDMA NEGATIVE U Benzodiazepines Scrn NEGATIVE Urine Cocaine Screen NEGATIVE U Cannabinoids Screen NEGATIVE Ur Drug Screen Comment 12/04/17 06:00 Sodium Potassium Chloride Carbon Dioxide Anion Gap BUN Creatinine Estim Creat Clear Calc Est GFR (MDRD) Af Amer Est GFR (MDRD) Non-Af BUN/Creatinine Ratio Glucose Hemoglobin A1c 8.0 H Calcium Total Bilirubin Direct Bilirubin AST ALT Alkaline Phosphatase Troponin I Total Protein Albumin Globulin Triglycerides Cholesterol LDL Cholesterol VLDL Cholesterol HDL Cholesterol TSH Free T4 Urine Opiates Screen Urine Methadone Screen Ur Barbiturates Screen Ur Phencyclidine Scrn Ur Amphetamines Screen U Methamphetamin-MDMA U Benzodiazepines Scrn Urine Cocaine Screen U Cannabinoids Screen Ur Drug Screen Comment POC Glucose 12/04/17 12/04/17 12/04/17 16:10 12:41 06:55 POC Glucose 203 H 194 H 74 12/03/17 22:00 POC Glucose 195 H Assessment/Plan This patient was seen in conjunction withBarney Carranza PA-C. I have independently interviewed and examined the patient and reviewed pertinent historical, laboratory, and other data. Please refer to Barney Carranza PA-C note for details of this patient's presentation, findings, and recommendations. I have reviewed Barney Carranza PA-C note and concur with documented findings. In brief, patient is a 67-year-old lady with multiple comorbidities including including diabetes mellitus type 2, hypertension hypothyroidism who presented with upper and lower extremity weakness and numbness MRI obtained was concerning for possible demyelinating disease patient admitted to a monitored bed with consultation placed to neurology Physical Examination: GENERAL: cooperative HEENT: Clear conjunctiva, NECK; supple, normal thyroid, CHEST: Diminished to auscultation bilaterally, HEART: PERRLA S1 S2, ABDOMEN: soft, normoactive bowel sounds, RECTAL: deferred EXTREMITIES: Bilateral trace edema, SKIN: No rash Assessment: 1. Intermittent upper and lower extremity weakness and numbness concerning for possible demyelinating disease 2. Dyslipidemia 3. Hypertension 4. Hypothyroidism 5. Acute kidney injury resolved with IV fluids 6. Left pain 7. Obesity with BMI of 40 8. DVT prophylaxis: Lovenox Recommendations: 1. I have discussed the results of my overview and impressions with the patient 2. Options for management were reviewed Code Visit Inpatient E&M: 36258 Subs Hosp L3
[2017-12-04] MEDS: Acetaminophen 325 MG Tablet 650 MG PO ×2 (13:57→21:00)
--- NOTE | 2017-12-04 14:00 | RAD_ITS ---
PROCEDURE: Fluoroscopic guided Lumbar Puncture. DATE: December 05, 2018. CLINICAL INDICATION: Lower extremity weakness. PHYSICIAN: Wei Kohler M.D. MEDICATIONS: 1% lidocaine administered subcutaneously for local anesthesia. ACCESS SITE: Lower posterior back. NEEDLE: 22-gauge spinal needle. SPECIMEN: Approximately 12 mL clear]CSF fluid. FLUOROSCOPY TIME (if supplied): (3:03) minutes/seconds COMPLICATIONS: None immediate. The risks, benefits, and alternatives to the procedure were explained to the patient. The specific risks of bleeding, infection, and neurovascular injury were detailed and accepted. Witnessed informed consent was obtained. The patient was placed on the fluoroscopic table in the prone position. The level for needle entry was determined and marked. The overlying skin was cleaned and prepped in the usual sterile fashion. 2% lidocaine was administered subcutaneously for local anesthesia. Under fluoroscopic guidance a 22-gauge spinal needle was advanced. The thecal sac was entered at the L3- L4 vertebral level. The inner stylet was removed. There was spontaneous flow of clear CSF fluid. The patient was placed in a reversed Trendelenburg position. Approximately 12 mL of cerebrospinal fluid was collected using gravity. The specimen was collected and submitted to the laboratory for further evaluation. The needle was withdrawn,. Hemostasis was achieved and a sterile dressing placed. The patient tolerated the procedure well without any immediate complications. The patient was placed supine with head elevated and returned to the floor in stable condition. RAD/Fluoro Guided Lumbar Puncture IMPRESSION: Successful fluoroscopic-guided lumbar puncture. Electronically Signed: Wei Kohler MD at 12:48 EST Tel [phone], Service support ,
--- NOTE | 2017-12-04 14:46 | PCM.CONS.GEN ---
Problem List (1) Left sided numbness Status: Acute Reason for Consult Date of Consultation: 12/04/17 Reason for Consultation: neck pain and left sided numbness History of Present Illness: The patient is a 67 year old CF with PMH HTN, HLD, DM, morbid obesity admitted with acute onset neck pain and left sided numbness. Per patient she started having neck pain and left sided numbness about 2 days ago, had difficulty walking, was at a wedding at [place] and had a fall 2 days ago following which is complaining of left shoulder pain. Per patient about 2 weeks ago she had neck pain, went to chiropractor, later had left sided numbness, was admitted to hospital in [place], where per documentation had normal CT head/CTA head/neck,MRI brain but MRI C spine had hyperintense lesion at C2. Per patient her symptoms had lasted for about 2 days at that time and improved, she was discharged from the hospital with the recommendation of following up with her Neurologist as outpatient in [facility]. At present patient is much better and denies any further focal neurological deficits, sensory loss, BUTLER or visual disturbances. MRI brain done during this admission did not show any acute stroke, MRI C spine shows hyperintense intramedullary lesion at C2 level with mild enhancement. Per patient she lives near [place], lives alone, does not use cane or walker to ambulate, denies any frequent falls, does not need any assistance for her ADLs, does drive. [] Past Medical History Past Medical History (Chronic Problems): Chronic Problems Diabetes mellitus type 2 in obese (Chronic) Neck pain (Chronic) Dyslipidemia (Chronic) Urge urinary incontinence (Chronic) Hypertension (Chronic) Hypothyroidism (acquired) (Chronic) GERD (gastroesophageal reflux disease) (Chronic) Allergies Penicillins Allergy (Verified 12/03/17 14:41) Rash Sulfa (Sulfonamide Antibiotics) Allergy (Verified 12/03/17 14:41) Rash Home Medications: Ambulatory Orders Medication Instructions Recorded Aspirin [Aspirin, Baby] 81 mg PO DAILY@0800 12/03/17 Cetirizine HCl [Zyrtec] 10 mg PO QHS 12/03/17 Esomeprazole Mag Trihydrate 40 mg PO DAILY 12/03/17 [Nexium] Fenofibrate,Micronized [Antara] 130 mg PO DAILY 12/03/17 Hydrochlorothiazide [Hctz] 12.5 mg PO DAILY 12/03/17 Insulin Detemir [Levemir FlexPen] 50 mg SQ QHS 12/03/17 Insulin Detemir [Levemir] 20 unit SQ DAILY 12/03/17 Levothyroxine Sodium 75 mcg PO DAILY 12/03/17 Lisinopril [Zestril] 20 mg PO DAILY 12/03/17 Metformin(XR) [Glucophage Xr] 500 mg PO BIDCM 12/03/17 Mometasone Furoate [Nasonex] 1 spray NASAL QHS 12/03/17 Montelukast [Singulair] 10 mg PO QHS 12/03/17 Omeprazole [Omeprazole] 20 mg PO DAILY 12/03/17 Ranitidine [Zantac] 300 mg PO QHS 12/03/17 Rosuvastatin Calcium [Crestor] 10 mg PO QHS 12/03/17 Solifenacin Succinate [Vesicare] 10 mg PO DAILY 12/03/17 Lives: Alone Smoking Status: Never smoker Alcohol: None Drugs: None - *Family History Paternal History Items: No pertinent history - Department neurological disease Review of Systems Constitutional: Reports: - - complete ROS negative except as documented in HPI Patient Problems: Active and Suspected Problems Left leg weakness and right numbness (Acute) Left sided numbness (Acute) - Physical Exam General: Alert, Oriented x3, Cooperative HEENT: Atraumatic, PERRLA, EOMI, Normocephalic Neck: Supple, No JVD, Negative Carotid Bruits Lungs: Clear to auscultation, Normal air movement Cardiovascular: Regular rate Abdomen: Bowel Sounds Present, Soft, Non Tender Extremities: No edema, Capillary Refill Less than 3 Seconds Skin: No rashes, No breakdown Musculoskeletal: No Tenderness to Palpation of Joints or Extremities Neurological: - - consious, alert, AoAx3, CN 2-12 grossly intact, power 5/5 all 4extremities at present, plantars B/L flexor, Reflexes + B/L B/S/T/K/A, no sensory loss or abnormal JPV at present, gait normal. Psych/Mental Status: Normal Affect, Appropriate Vital Signs Temp Pulse Resp BP Pulse Ox 98.4 F 59 L 16 142/72 H 97 12/04/17 10:14 12/04/17 11:08 12/04/17 10:14 12/04/17 10:14 12/04/17 10:14 Oxygen Delivery Method Room Air Weight: 95.935 kg Body Mass Index (BMI) 39.9 Intake and Output for Last 24 Hours 12/02/17 12/03/17 12/04/17 23:59 23:59 23:59 Intake Total 491 / 491 1001 / 1001 Output Total 150 / 150 200 / 200 Balance 341 / 341 801 / 801 Laboratory Tests Past 24 Hrs 12/03/17 12/03/17 12/04/17 21:04 21:10 06:00 Sodium 146 H Potassium 3.6 Chloride 110 H Carbon Dioxide 31.0 Anion Gap 5 BUN 25 H Creatinine 1.09 H Estim Creat Clear Calc 38.83 Est GFR (MDRD) Af Amer 65 Est GFR (MDRD) Non-Af 53 L BUN/Creatinine Ratio 22.9 H Glucose 80 Hemoglobin A1c Calcium 8.9 Total Bilirubin 0.30 Direct Bilirubin 0.13 AST 18 ALT 27 Alkaline Phosphatase 50 Troponin I < 0.02 Total Protein 7.5 Albumin 3.6 Globulin 3.9 Triglycerides 148 Cholesterol 111 LDL Cholesterol 38 VLDL Cholesterol 30 HDL Cholesterol 43 TSH 0.86 Free T4 1.25 Urine Opiates Screen NEGATIVE Urine Methadone Screen NEGATIVE Ur Barbiturates Screen NEGATIVE Ur Phencyclidine Scrn NEGATIVE Ur Amphetamines Screen NEGATIVE U Methamphetamin-MDMA NEGATIVE U Benzodiazepines Scrn NEGATIVE Urine Cocaine Screen NEGATIVE U Cannabinoids Screen NEGATIVE Ur Drug Screen Comment 12/04/17 06:00 Sodium Potassium Chloride Carbon Dioxide Anion Gap BUN Creatinine Estim Creat Clear Calc Est GFR (MDRD) Af Amer Est GFR (MDRD) Non-Af BUN/Creatinine Ratio Glucose Hemoglobin A1c 8.0 H Calcium Total Bilirubin Direct Bilirubin AST ALT Alkaline Phosphatase Troponin I Total Protein Albumin Globulin Triglycerides Cholesterol LDL Cholesterol VLDL Cholesterol HDL Cholesterol TSH Free T4 Urine Opiates Screen Urine Methadone Screen Ur Barbiturates Screen Ur Phencyclidine Scrn Ur Amphetamines Screen U Methamphetamin-MDMA U Benzodiazepines Scrn Urine Cocaine Screen U Cannabinoids Screen Ur Drug Screen Comment POC Glucose 12/04/17 12/04/17 12/03/17 12:41 06:55 22:00 POC Glucose 194 H 74 195 H Assessment/Plan Active and Suspected Problems Left leg weakness and right numbness (Acute) Left sided numbness (Acute) he patient is a 67 year old CF with PMH HTN, HLD, DM, morbid obesity admitted with acute onset neck pain and left sided numbness. Per patient she started having neck pain and left sided numbness about 2 days ago, had difficulty walking, was at a wedding at [place] and had a fall 2 days ago following which is complaining of left shoulder pain. Per patient about 2 weeks ago she had neck pain, went to chiropractor, later had left sided numbness, was admitted to hospital in [place], where per documentation had normal CT head/CTA head/neck,MRI brain but MRI C spine had hyperintense lesion at C2. Per patient her symptoms had lasted for about 2 days at that time and improved, she was discharged from the hospital with the recommendation of following up with her Neurologist as outpatient in [facility]. At present patient is much better and denies any further focal neurological deficits, sensory loss, BUTLER or visual disturbances. MRI brain done during this admission did not show any acute stroke, MRI C spine shows hyperintense intramedullary lesion at C2 level with mild enhancement. Per patient she lives near [place], lives alone, does not use cane or walker to ambulate, denies any frequent falls, does not need any assistance for her ADLs, does drive. Impression Left sided numbness with hyperintense lesion at C2 level on MRI brain, R/O MS Plan -MRI brain and MRI C spine images reviewed -Recommend LP- check CSF cell count, protein, glucose, MBP, IgG index and oligoclonal bands -Patient complaining of left shoulder pain following a fall 2 days back, will defer further management to the hospitalist team. -Labs reviewed, further medical management per primary team -GI/DVT prophylaxis -Recommend PT/OT -Fall precautions. -Follow up with her Neurologist as outpatient in 1-2 weeks at [facility]. -Thank you for allowing us to participate in patients care and management I spent 60 minutes taking history, doing physical examination, reviewing medical records, coordinating care and counseling the patient. Code Visit Inpatient E&M: 69830 Init Hosp L3
--- NOTE | 2017-12-04 15:18 | CASEMGMT ---
LEILANI BOLAÑOS completed chart review. PMHX: Diabetes mellitus type 2 Neck pain Dyslipidemia Urge urinary incontinence Hypertension Hypothyroidism (acquired) QING GALLO: Presented for left sided weakness; negative Brain MRI; Cervical spine MRI revealed hyperintense lesion at C2. Of note, patient was seen at a hospital near [place] for same, and was instructed to follow-up with her neurologist in [facility]. Today per neurology, pt's symptoms have resolved. Neuro consulted and recommendations from consult as follows: Impression Left sided numbness with hyperintense lesion at C2 level on MRI brain, R/O MS Plan -MRI brain and MRI C spine images reviewed -Recommend LP- check CSF cell count, protein, glucose, MBP, IgG index and oligoclonal bands -Patient complaining of left shoulder pain following a fall 2 days back, will defer further management to the hospitalist team. -Labs reviewed, further medical management per primary team -GI/DVT prophylaxis -Recommend PT/OT -Fall precautions. -Follow up with her Neurologist as outpatient in 1-2 weeks at [facility]. LEILANI BOLAÑOS Assessment/Transition Planning/Care Coordination: Pt's LACE is 1; patient will arrange her own follow-up appnts. Per documentation, patient does report she has a PCP and neurologist near her home town. At baseline, patient lives alone, walks without AD, and drives. Per PT eval, patient was independent prior to admission and was able to walk 200 feet contact guard/SBA. LEILANI BOLAÑOS will continue to follow hospital course should needs arise. Disposition: Anticipate home with no needs.
[2017-12-04 16:21] LABS: Bedside Glucose 203 mg/dL (70-110)
[2017-12-04] MEDS: Loratadine 10 MG Tablet PO (20:51)
[2017-12-04] MEDS: Fluticasone 0.05% 1 SPRAY NASAL.SRY 2 SPRAY NASAL (20:52)
[2017-12-04] MEDS: Montelukast 10 MG Tablet PO (20:52)
[2017-12-04 21:06] LABS: Bedside Glucose 162 mg/dL (70-110)
[2017-12-05] VITALS (7 sets, daily range): BP systolic 141–146; BP diastolic 69–80; PULSE 54–78; RESP 16–20; TEMP 36.6–36.9; O2SAT 96–97; BMI 39.9
[2017-12-05] MEDS: Acetaminophen 325 MG Tablet 650 MG PO ×2 (04:18→10:15)
[2017-12-05 05:42] LABS: Absolute Lymphocyte Count 3.61 X10^3/ul (0.83-4.51); Absolute Neutrophil Count 3.1 X10^3/uL (2.0-7.7); Basophil# 0.08 X10^3/uL; Eosinophil# 0.47 X10^3/uL; Eosinophils% 5.9 % (0-5); Hematocrit 38.1 % (37-47); Hemoglobin 12.3 g/dl (12.0-15.0); Lymphocyte # 3.61 X10^3/ul (4.0); Mean Corp Hgb Conc 32.3 g/gl (32-36); Mean Corpuscular Hgb 30.3 pg (27.0-32.0); Mean Corpuscular Volume 93.8 fL (81-99); Mean Platelet Vol. 10.4 fl (6.2-12.0); Monocyte# 0.74 X10^3/uL; Monocyte% 9.2 % (0-10); Neutrophil # 3.11 X10^3/uL (2.7-7.7); Neutrophil % 38.7 % (47-70); Platelet Count 272 K/mm3 (150-450); RBC Distribution Width CV 12.7 % (11.6-14.6); RBC Distribution Width SD 42.5 fl (35.1-43.9); Red Blood Count 4.06 M/mm3 (4.2-5.4)
[2017-12-05 05:52] LABS: POSITIVE COUNT NO; POSITIVE DIFFERENTIAL NO; POSITIVE MORPHOLOGY NO
[2017-12-05 06:02] LABS: Anion Gap 6 (5-15); BUN 21 mg/dL (7-18); BUN/Creat Ratio 18.3 RATIO (10-20); Calcium,Total 8.5 mg/dL (8.5-10.1); Chloride 109 mmol/L (98-107); Creatinine, Serum 1.15 mg/dL (0.55-1.02); EST Glomerular Filtration Rate 50 mL/min (>60); Est Glom Filt Rate - Afr Amer 61 mL/min (>60); Glucose 85 mg/dL (70-110); Potassium 3.7 mmol/L (3.5-5.1); Sodium Level 144 mmol/L (136-145)
[2017-12-05] MEDS: Levothyroxine 75 MCG Tablet PO (06:50)
[2017-12-05 07:11] LABS: Bedside Glucose 69 mg/dL (70-110)
--- NOTE | 2017-12-05 08:07 | NURSING ---
Paged Dr. Castillo's office. Per radiology Dr. Figueroa would like to speak with Dr. Castillo prior to doing lumbar puncture.
[2017-12-05] MEDS: 0.9% Normal Saline 1,000 ML 100 ML IV (09:25)
[2017-12-05] MEDS: Fenofibrate 145 MG Tablet PO (09:26)
[2017-12-05] MEDS: Atorvastatin Calcium 40 MG Tablet PO (09:26)
[2017-12-05] MEDS: Pantoprazole Sodium 40 MG Tablet PO (09:26)
[2017-12-05] MEDS: Lisinopril 20 MG Tablet PO (09:26)
[2017-12-05] MEDS: Famotidine 20 MG Tablet PO (09:26)
[2017-12-05] MEDS: Tolterodine Tartrate 4 MG CAP.SA PO (09:27)
--- NOTE | 2017-12-05 11:17 | CYSPIN_PTH ---
PATIENT: LELE MORENO LOC: [facility] U#:[id number] AGE/SX: 67/F ROOM: [facility] RE12/03/[address]: Dr. Chris Augustine MD : [id number] BED: 1 DIS: 12/05/2017 SPEC #: [id number] RECD: 12/05/17 13:28 STATUS: FRANCOISE KSENIA #: [id number] HILLARY: 12/05/17 11:[address]: Chris Augustine DEPT: CYTOLOGY RECD BY: Jones Miller ENTERED: 12/05/17 13:29 SP TYPE: CYSPIN FL OTHR DR: MD Dr. Leonardo Rockwell MD Out [facility] Doctor Tissues: Cerebrospinal Fluid Procedures: Pap Stain (control) Special Stain Group II [employer] Stain (control) Cytospin Fluid HEADER OPERATION: Fluoroscopic-guided lumbar puncture PRE-OP DIAGNOSIS: Lower extremity weakness TISSUE SUBMITTED: Cerebrospinal fluid for cytology DIAGNOSIS CYTOLOGY CSF for cytology (cytospin): Negative for malignant cells. Special stain for acid fast bacilli is negative for organisms; matched control is appropriate. SJ:camilo 12/06/17 CYTOLOGY STUDY Slides are reviewed. The specimen is paucicellular and consists of rare lymphocytes, neutrophils and monocytes. CYTOLOGY GROSS Received is 3 ml of clear colorless fluid labeled with the patient's name and and designated per the requisition as CSF. Submitted for cytology preparation. 12/05/17 TC:4 CPT: 13757, 81778
[2017-12-05 11:25] LABS: Acid Fast Stain SEE PATHOLOGY REPORT; Cytology, Body Fluid / CSF SEE PATHOLOGY REPORT
[2017-12-05 11:35] LABS: Body Fluid Mononuclear WBC # 0.001 10^3/uL; Total Cell Count CSF 0.001 10^3/uL (0.000-0.000); White Count, CSF 0.001 10^3/uL (0.000-0.000)
[2017-12-05] MEDS: Enoxaparin 40 MG/0.4 ML Syringe SC (11:39)
[2017-12-05] MEDS: Aspirin 81 MG TAB.CHEW PO (11:39)
[2017-12-05 11:51] LABS: Auto B Fluid Analyzer BKGD Ct COUNTS W/IN LIMITS (W/IN LIMITS); Tested Tube # 4
[2017-12-05 11:52] LABS: Appearance CSF (character) CLEAR (Clear); CSF Color COLORLESS (Colorless); Glucose Spinal Fluid 52 mg/dL (40-75); RBC Count, Spinal Fluid 4 /mm-3 (None seen)
[2017-12-05 11:53] LABS: Body Fluid QC Type(s) BF1Q
[2017-12-05 11:55] LABS: Bedside Glucose 83 mg/dL (70-110)
[2017-12-05 13:12] LABS: Oligoclonal Banding REF LAB
--- NOTE | 2017-12-05 13:23 | NURSING ---
PT C/O LEFT LEG PAIN AFTER RETURNING FROM LUMBAR PUNCTURE. REPOSITIONING HELPFUL. PER PT THE PAIN IS SHARP AND IT COMES AND GOES. PT REMAINS LAYING FLAT. JULY AWARE. DR. AGUILAR AT BEDSIDE AND AWARE DOESNT BELIEVE PAIN IS FROM LP. ALSO NOTIFIED XRAY AND SPOKE WITH YINKA-RADIOLOGIST MADE AWARE OF LEFT LEG PAIN THAT THE PATIENT WAS HAVING.
--- NOTE | 2017-12-05 13:52 | PN.NEURO_ITS ---
Patient Problems: Active and Suspected Problems Left leg weakness and right numbness (Acute) Left sided numbness (Acute) Subjective: No issues overnight. Had LP this morning. Has been complaining of left leg pain since LP. - Physical Exam General: Alert, Oriented x3, Cooperative HEENT: Atraumatic, PERRLA, EOMI, Normocephalic Neck: Supple, No JVD, Negative Carotid Bruits Lungs: Clear to auscultation, Normal air movement Cardiovascular: Regular rate, No murmurs Abdomen: Bowel Sounds Present, Soft, Non Tender Extremities: No edema, Capillary Refill Less than 3 Seconds Skin: No rashes, No breakdown Musculoskeletal: No Tenderness to Palpation of Joints or Extremities Neurological: Cranial nerves II-XII grossly intact, - - consious, alert, AoA x3 , CN 2-12 grossly intact, power 5/5 all 4 extremities, no sensory loss, no cerebellar signs, Reflexes + B/L B/S/T/K/A, gait deferred. Psych/Mental Status: Normal Affect, Appropriate Vital Signs Temp Pulse Resp BP Pulse Ox 98.4 F 58 L 16 142/70 H 97 12/05/17 10:16 12/05/17 10:53 12/05/17 10:16 12/05/17 10:16 12/05/17 10:16 Oxygen Delivery Method Room Air Weight: 95.935 kg Body Mass Index (BMI) 39.9 Intake and Output for Last 24 Hours 12/03/17 12/04/17 12/05/17 23:59 23:59 23:59 Intake Total 491 / 491 3156 / 3156 1287 / 1287 Output Total 150 / 150 900 / 900 250 / 250 Balance 341 / 341 2256 / 2256 1037 / 1037 Microbiology Past 72 Hours 12/05/17 11:01 Gram Stain - Final Csf, Spinal Fluid Laboratory Tests Past 24 Hrs 12/05/17 12/05/17 12/05/17 05:20 05:20 11:01 WBC 8.0 RBC 4.06 L Hgb 12.3 Hct 38.1 MCV 93.8 MCH 30.3 MCHC 32.3 RDW 12.7 RDW Differential 42.5 Plt Count 272 MPV 10.4 Immature Gran % (Auto) 0.200 Neut % (Auto) 38.7 L Lymph % (Auto) 45.0 H [place] % (Auto) 9.2 Eos % (Auto) 5.9 H Baso % (Auto) 1.0 Absolute Neuts (auto) 3.1 Absolute Lymphs (auto) 3.61 Total Counted Not Reportable Sodium 144 Potassium 3.7 Chloride 109 H Carbon Dioxide 29.0 Anion Gap 6 BUN 21 H Creatinine 1.15 H Estim Creat Clear Calc 36.80 Est GFR (MDRD) Af Amer 61 Est GFR (MDRD) Non-Af 50 L BUN/Creatinine Ratio 18.3 Glucose 85 Calcium 8.5 Albumin Fld Polynuclear WBCs # Fld Polynuclear WBCs % Fluid Mononuclear WBCs Fld Mononuclear WBCs % CSF Appearance CSF Color CSF WBC CSF RBC CSF Cell Count Tube # CSF Total Cell Counted CSF Comment CSF Glucose CSF Total Protein CSF Albumin Serum IgG CSF IgG/Albumin CSF Albumin Index CSF IgG Index CSF IgG Local Synthesis CSF Myelin Basic Protein CSF/Ser Oligoclon Bands CSF VDRL CSF Cryptococcus Ag CSF VZV DNA (PCR) Acid Fast Stain Pending CMV DNA Qual PCR [place] RNA (RT-PCR) [place] Interp Enterovirus RNA (PCR) Herpes Simplex Culture HSV I DNA PCR HSV II DNA PCR HSV Final Result Culture Method Miscellaneous Cytology Miscellaneous Test 12/05/17 12/05/17 12/05/17 11:01 11:01 11:01 WBC RBC Hgb Hct MCV MCH MCHC RDW RDW Differential Plt Count MPV Immature Gran % (Auto) Neut % (Auto) Lymph % (Auto) [place] % (Auto) Eos % (Auto) Baso % (Auto) Absolute Neuts (auto) Absolute Lymphs (auto) Total Counted Sodium Potassium Chloride Carbon Dioxide Anion Gap BUN Creatinine Estim Creat Clear Calc Est GFR (MDRD) Af Amer Est GFR (MDRD) Non-Af BUN/Creatinine Ratio Glucose Calcium Albumin Fld Polynuclear WBCs # Fld Polynuclear WBCs % Fluid Mononuclear WBCs Fld Mononuclear WBCs % CSF Appearance CSF Color CSF WBC CSF RBC CSF Cell Count Tube # CSF Total Cell Counted CSF Comment CSF Glucose 52 CSF Total Protein 30.0 CSF Albumin Serum IgG CSF IgG/Albumin CSF Albumin Index CSF IgG Index CSF IgG Local Synthesis CSF Myelin Basic Protein CSF/Ser Oligoclon Bands CSF VDRL CSF Cryptococcus Ag Pending CSF VZV DNA (PCR) Acid Fast Stain CMV DNA Qual PCR Pending [place] RNA (RT-PCR) [place] Interp Enterovirus RNA (PCR) Herpes Simplex Culture HSV I DNA PCR HSV II DNA PCR HSV Final Result Culture Method Miscellaneous Cytology Pending Miscellaneous Test 12/05/17 12/05/17 12/05/17 11:01 11:01 11:01 WBC RBC Hgb Hct MCV MCH MCHC RDW RDW Differential Plt Count MPV Immature Gran % (Auto) Neut % (Auto) Lymph % (Auto) [place] % (Auto) Eos % (Auto) Baso % (Auto) Absolute Neuts (auto) Absolute Lymphs (auto) Total Counted Sodium Potassium Chloride Carbon Dioxide Anion Gap BUN Creatinine Estim Creat Clear Calc Est GFR (MDRD) Af Amer Est GFR (MDRD) Non-Af BUN/Creatinine Ratio Glucose Calcium Albumin Fld Polynuclear WBCs # 0.000 Fld Polynuclear WBCs % 0.0 Fluid Mononuclear WBCs 0.001 Fld Mononuclear WBCs % 100.0 CSF Appearance CLEAR CSF Color COLORLESS CSF WBC 0.001 H CSF RBC 4 H CSF Cell Count Tube # 4 CSF Total Cell Counted 0.001 H CSF Comment May follow CSF Glucose CSF Total Protein CSF Albumin Serum IgG CSF IgG/Albumin CSF Albumin Index CSF IgG Index CSF IgG Local Synthesis CSF Myelin Basic Protein CSF/Ser Oligoclon Bands CSF VDRL CSF Cryptococcus Ag CSF VZV DNA (PCR) Acid Fast Stain CMV DNA Qual PCR [place] RNA (RT-PCR) [place] Interp Enterovirus RNA (PCR) Pending Herpes Simplex Culture Pending HSV I DNA PCR Pending HSV II DNA PCR Pending HSV Final Result Pending Culture Method Miscellaneous Cytology Miscellaneous Test Cancelled 12/05/17 11:01 WBC RBC Hgb Hct MCV MCH MCHC RDW RDW Differential Plt Count MPV Immature Gran % (Auto) Neut % (Auto) Lymph % (Auto) [place] % (Auto) Eos % (Auto) Baso % (Auto) Absolute Neuts (auto) Absolute Lymphs (auto) Total Counted Sodium Potassium Chloride Carbon Dioxide Anion Gap BUN Creatinine Estim Creat Clear Calc Est GFR (MDRD) Af Amer Est GFR (MDRD) Non-Af BUN/Creatinine Ratio Glucose Calcium Albumin Pending Fld Polynuclear WBCs # Fld Polynuclear WBCs % Fluid Mononuclear WBCs Fld Mononuclear WBCs % CSF Appearance CSF Color CSF WBC CSF RBC CSF Cell Count Tube # CSF Total Cell Counted CSF Comment CSF Glucose CSF Total Protein CSF Albumin Pending Serum IgG Pending CSF IgG/Albumin Pending CSF Albumin Index Pending CSF IgG Index Pending CSF IgG Local Synthesis Pending CSF Myelin Basic Protein Pending CSF/Ser Oligoclon Bands Pending CSF VDRL Pending CSF Cryptococcus Ag CSF VZV DNA (PCR) Pending Acid Fast Stain CMV DNA Qual PCR [place] RNA (RT-PCR) Pending [place] Interp Pending Enterovirus RNA (PCR) Herpes Simplex Culture HSV I DNA PCR HSV II DNA PCR HSV Final Result Culture Method Pending Miscellaneous Cytology Miscellaneous Test POC Glucose 12/05/17 12/05/17 12/04/17 11:44 06:47 20:50 POC Glucose 83 69 L 162 H 12/04/17 16:10 POC Glucose 203 H Assessment/Plan Active and Suspected Problems Left leg weakness and right numbness (Acute) Left sided numbness (Acute) he patient is a 67 year old CF with PMH HTN, HLD, DM, morbid obesity admitted with acute onset neck pain and left sided numbness. Per patient she started having neck pain and left sided numbness about 2 days ago, had difficulty walking, was at a wedding at [place] and had a fall 2 days ago following which is complaining of left shoulder pain. Per patient about 2 weeks ago she had neck pain, went to chiropractor, later had left sided numbness, was admitted to hospital in [place], where per documentation had normal CT head/CTA head/ neck,MRI brain but MRI C spine had hyperintense lesion at C2. Per patient her symptoms had lasted for about 2 days at that time and improved, she was discharged from the hospital with the recommendation of following up with her Neurologist as outpatient in [facility]. At present patient is much better and denies any further focal neurological deficits, sensory loss, BUTLER or visual disturbances. MRI brain done during this admission did not show any acute stroke, MRI C spine shows hyperintense intramedullary lesion at C2 level with mild enhancement. Per patient she lives near [place], lives alone, does not use cane or walker to ambulate, denies any frequent falls, does not need any assistance for her ADLs, does drive. Impression Left sided numbness with hyperintense lesion at C2 level on MRI brain, R/O MS Plan -MRI brain and MRI C spine images reviewed -LP done this morning- WBCs 1, protein-30, Glucose 52, rest results pending. -Patient complaining of left shoulder pain following a fall 2 days back and has been having left leg pain following LP but no new neurological symptoms on examination, will defer further management to the hospitalist team. -Labs reviewed, further medical management per primary team -Per patient she follows up with pain management for her neck pain. -GI/DVT prophylaxis -Recommend PT/OT -Fall precautions. -Follow up with her Neurologist as outpatient in 1-2 weeks at [facility]. Patient should get repeat MRI C spine w/w/o contrast in follow up in 3-6 months for monitoring the lesion at C2 level. -Thank you for allowing us to participate in patients care and management I spent 30 minutes taking history, doing physical examination, reviewing medical records, coordinating care and counseling the patient.
--- NOTE | 2017-12-05 13:55 | DCINST_ITS ---
- Discharge Diagnoses Current Active Problems: Current Active and Chronic Problems Diabetes mellitus type 2 in obese (Chronic) Neck pain (Chronic) Left leg weakness and right numbness (Acute) Dyslipidemia (Chronic) Urge urinary incontinence (Chronic) Hypertension (Chronic) Hypothyroidism (acquired) (Chronic) GERD (gastroesophageal reflux disease) (Chronic) Left sided numbness (Acute) You will use the following diet at home:: Calorie/Carbohydrate Controlled ( specify 1200, 1400, etc) Discharge Activity: Return to Normal Activity Call your doctor if you observe: Fever of 101 or Higher, Numbness or Tingling, Shortness of breath, Dizziness, Fainting spells, Chest pain Additional Instructions: Recommend continued follow up with neurology in [place]. Recommend repeat MRI in 6 months to monitor C2 lesion. Do not recommend botox muscle injection at this time until further follow up is taken with neurology regarding lesion as well as pending testing from lumbar puncture. Would also recommend neurology refer you to spinal surgeon in the area you live in for further evaluation of neck pain. Allergies/Adverse Reactions: Allergies Penicillins Allergy (Verified 12/03/17 14:41) Rash Sulfa (Sulfonamide Antibiotics) Allergy (Verified 12/03/17 14:41) Rash Medications to take at Discharge Aspirin [Aspirin, Baby] 81 mg PO DAILY@0800 12/03/17 Cetirizine HCl [Zyrtec] 10 mg PO QHS 12/03/17 Esomeprazole Mag Trihydrate [Nexium] 40 mg PO DAILY 12/03/17 Fenofibrate,Micronized [Antara] 130 mg PO DAILY 12/03/17 Hydrochlorothiazide [Hctz] 12.5 mg PO DAILY 12/03/17 Insulin Detemir [Levemir FlexPen] 50 mg SQ QHS 12/03/17 Insulin Detemir [Levemir] 20 unit SQ DAILY 12/03/17 Levothyroxine Sodium 75 mcg PO DAILY 12/03/17 Lisinopril [Zestril] 20 mg PO DAILY 12/03/17 Metformin(XR) [Glucophage Xr] 500 mg PO BIDCM 12/03/17 Mometasone Furoate [Nasonex] 1 spray NASAL QHS 12/03/17 Montelukast [Singulair] 10 mg PO QHS 12/03/17 Omeprazole 20 mg PO DAILY 12/03/17 Ranitidine [Zantac] 300 mg PO QHS 12/03/17 Rosuvastatin Calcium [Crestor] 10 mg PO QHS 12/03/17 Solifenacin Succinate [Vesicare] 10 mg PO DAILY 12/03/17 Primary Care Physician: Priti Doctor,Out of [Primary Care Provider] - Please follow up with your Primary Care Physician in: 1 Week Please Follow Up With: [facility] Neurologist When: 1-2 Weeks Proposed Discharge Date: 12/05/17
--- NOTE | 2017-12-05 13:55 | PCM.DC.SUM ---
<Nilda Nash - Last Filed: 12/05/17 14:09> Discharge Date and Diagnosis Date of Admission: 12/03/17 Date of Discharge: 12/05/17 - Primary Discharge Diagnosis Active and Suspected Problems Left leg weakness and right numbness- Acute stroke ruled out - Secondary Discharge Diagnosis Chronic Problems Diabetes mellitus type 2 in obese (Chronic) Neck pain (Chronic) Dyslipidemia (Chronic) Urge urinary incontinence (Chronic) Hypertension (Chronic) Hypothyroidism (acquired) (Chronic) GERD (gastroesophageal reflux disease) (Chronic) Hospital Course and Treatment Imaging Results: Diagnostic Data Brain CT 12/03/17 15:13 IMPRESSION: Chronic involutional changes of the brain. Electronically Signed: Wei Kohler MD at 15:56 EST Tel [phone], Service support , Chest X-Ray 12/03/17 21:05 IMPRESSION: Right middle lobe focal opacity measuring approximately 1 cm for which further evaluation with a noncontrast chest CT is recommended when clinically appropriate. Differential includes, summation of shadows versus inflammatory or potentially malignant pulmonary nodule. Electronically Signed: Tatyana Parker MD at 21:58 EST Tel , Service support , Brain MRI 12/04/17 06:57 IMPRESSION: 1. No MRI evidence of acute or subacute ischemic infarct. 2. Multiple small subcortical white matter T2 FLAIR hyperintensity foci in both cerebral hemispheres are nonspecific. They may be secondary to microvascular disease. 3. No MRI evidence of enhancing lesions intraaxially or extra-axially. Electronically Signed: Jonatohn Rodriguez MD at 10:31 EST , Service support , Cervical Spine MRI 12/04/17 06:57 IMPRESSION: 1. No MRI evidence of cervical extruded disc fragment, spinal stenosis or cervical nerve root displacement. 2. Abnormal T2 bleeding or high signal intensity of the cervical spinal cord at the C2 vertebral body level with faint linear contrast enhancement. Etiology is unknown. Possible enhancing linear MS plaque. Atypical for neoplasm due to its linear enhancement and linear contour. CSF correlation may be helpful for further evaluation. Electronically Signed: Jonathon Rodriguez MD at 9:48 EST , Service support , Thoracic Spine MRI 12/04/17 06:57 IMPRESSION: Mild degenerative changes. Electronically Signed: Deangelo Alves MD at 10:45 EST Tel , Service support , Shoulder X-Ray 12/04/17 11:00 IMPRESSION: Arthritic changes of the acromioclavicular joint. Electronically Signed: Wei Kohler MD at 11:24 EST Tel [phone], Service support , Lumbar Puncture Fluoroscopy 12/04/17 14:00 IMPRESSION: Successful fluoroscopic-guided lumbar puncture. Electronically Signed: Wei Kohler MD at 12:48 EST Tel [phone], Service support , Dr. Castillo- Neurology Operations: None Procedures: - - Lumbar puncture Summary of Care Provided: The patient is a 67 year old F admitted 12/03/2017 due to left-sided leg weakness and right-sided numbness. Patient states she has had similar symptoms in the past. She resides in [facility] and has had previous workup in the past for similar symptoms. She was to follow-up with neurology as outpatient. She has a past medical history of hypertension, hypothyroidism, hyperlipidemia, type 2 diabetes mellitus, GERD, chronic kidney disease stage III. Patient complains of ongoing neck pain. MRI of brain during this admission showed no acute stroke. MRI of C-spine shows hyperintense intramedullary lesion at C2 level. This was noted on outside facility imaging as well per patient and was thought to be a cyst. She was to continue outpatient follow-up. Recommend repeat MRI of C-spine in 6 months and 1 year by patient's neurologist in [place]. Lumbar puncture was performed to rule out MS. CSF WBC, RBC, protein, glucose, total cell count unremarkable. Full CSF panel pending at discharge. Patient's neurologist will need to request records when these results are final. Low suspicion for MS. In addition to follow-up with neurologist, recommend neurology referral to spinal surgeon in patients area where she resides for continued neck pain. Patient has had improvement of symptoms with massage and chiropractor. Patient may have a component of polyneuropathy secondary to poorly controlled type 2 diabetes mellitus. A1c 8.0%. Recommend further monitoring and adjustment by primary care physician. Other chronic medical conditions as noted above are stable at this time. General: Alert, Oriented x3, Cooperative HEENT: Atraumatic, PERRLA, EOMI, Normocephalic Neck: Supple, No JVD, Negative Carotid Bruits Lungs: Clear to auscultation, Normal air movement Cardiovascular: Regular rate, regular rhythm Abdomen: Bowel Sounds Present, Soft, Non Tender Extremities: No edema, Capillary Refill Less than 3 Seconds Skin: No rashes, No breakdown Musculoskeletal: No Tenderness to Palpation of Joints or Extremities Neurological: Cranial nerves II-XII grossly intact Psych/Mental Status: Normal Affect, Appropriate Patient seen and examined prior to discharge. Physical assessment as noted above. Neuro grossly intact. Patient is stable for discharge with the recommendations as noted above. Discharge Diet: Low fat/ Low Cholesterol, Carb Control Diet Discharge Activity: Return to Normal Activity Call your doctor if you observe: Fever of 101 or Higher, Numbness or Tingling, Shortness of breath, Dizziness, Fainting spells, Chest pain Home Medications: Medications to take at Discharge Aspirin [Aspirin, Baby] 81 mg PO DAILY@0800 12/03/17 Cetirizine HCl [Zyrtec] 10 mg PO QHS 12/03/17 Esomeprazole Mag Trihydrate [Nexium] 40 mg PO DAILY 12/03/17 Fenofibrate,Micronized [Antara] 130 mg PO DAILY 12/03/17 Hydrochlorothiazide [Hctz] 12.5 mg PO DAILY 12/03/17 Insulin Detemir [Levemir FlexPen] 50 mg SQ QHS 12/03/17 Insulin Detemir [Levemir] 20 unit SQ DAILY 12/03/17 Levothyroxine Sodium 75 mcg PO DAILY 12/03/17 Lisinopril [Zestril] 20 mg PO DAILY 12/03/17 Metformin(XR) [Glucophage Xr] 500 mg PO BIDCM 12/03/17 Mometasone Furoate [Nasonex] 1 spray NASAL QHS 12/03/17 Montelukast [Singulair] 10 mg PO QHS 12/03/17 Omeprazole 20 mg PO DAILY 12/03/17 Ranitidine [Zantac] 300 mg PO QHS 12/03/17 Rosuvastatin Calcium [Crestor] 10 mg PO QHS 12/03/17 Solifenacin Succinate [Vesicare] 10 mg PO DAILY 12/03/17 Primary Care Physician: Priti Hernandez,Out of [Primary Care Provider] - Please follow up with your Primary Care Physician in: 1 Week Please Follow Up With: [place] Neurologist When: 1-2 Weeks Disposition: Home Minutes spent on discharge:: 35 Patient Condition:: Stable Meaningful Use Info Meaningful Use Diagnoses (Choose all that apply): None applicable <Chris Augustine - Last Filed: 12/05/17 15:29> Discharge Date and Diagnosis - Secondary Discharge Diagnosis Chronic Problems Diabetes mellitus type 2 in obese (Chronic) Neck pain (Chronic) Dyslipidemia (Chronic) Urge urinary incontinence (Chronic) Hypertension (Chronic) Hypothyroidism (acquired) (Chronic) GERD (gastroesophageal reflux disease) (Chronic) Hospital Course and Treatment Summary of Care Provided: In brief, patient is a 67-year-old lady with multiple comorbidities including including diabetes mellitus type 2, hypertension hypothyroidism who presented with upper and lower extremity weakness and numbness MRI obtained was concerning for possible demyelinating disease patient admitted to a monitored bed with consultation placed to neurology. Patient underwent workup for possible multiple sclerosis including imaging studies as well as lumbar puncture results of her studies were pending at the time of discharge. Her symptoms did improve after 2 days of hospitalization discharge home instructed to follow-up with her neurologist in [facility]. Patient was also instructed to obtain copies of her medical records prior to getting discharge Hospital course as elicited above by Nilda Nash's note Total time spent in discharge process 35 minutes Code Visit Inpatient E&M: [id number] Disch Hosp
--- NOTE | 2017-12-05 14:08 | DS.PCM_ITS ---
<Nilda Nash - Last Filed: 12/05/17 14:09> Discharge Date and Diagnosis Date of Admission: 12/03/17 Date of Discharge: 12/05/17 - Primary Discharge Diagnosis Active and Suspected Problems Left leg weakness and right numbness- Acute stroke ruled out - Secondary Discharge Diagnosis Chronic Problems Diabetes mellitus type 2 in obese (Chronic) Neck pain (Chronic) Dyslipidemia (Chronic) Urge urinary incontinence (Chronic) Hypertension (Chronic) Hypothyroidism (acquired) (Chronic) GERD (gastroesophageal reflux disease) (Chronic) Hospital Course and Treatment Imaging Results: Diagnostic Data Brain CT 12/03/17 15:13 IMPRESSION: Chronic involutional changes of the brain. Electronically Signed: Wei Kohler MD at 15:56 EST Tel [phone], Service support , Chest X-Ray 12/03/17 21:05 IMPRESSION: Right middle lobe focal opacity measuring approximately 1 cm for which further evaluation with a noncontrast chest CT is recommended when clinically appropriate. Differential includes, summation of shadows versus inflammatory or potentially malignant pulmonary nodule. Electronically Signed: Tatyana Parker MD at 21:58 EST Tel , Service support , Brain MRI 12/04/17 06:57 IMPRESSION: 1. No MRI evidence of acute or subacute ischemic infarct. 2. Multiple small subcortical white matter T2 FLAIR hyperintensity foci in both cerebral hemispheres are nonspecific. They may be secondary to microvascular disease. 3. No MRI evidence of enhancing lesions intraaxially or extra-axially. Electronically Signed: Jonathon Rodriguez MD at 10:31 EST , Service support , Cervical Spine MRI 12/04/17 06:57 IMPRESSION: 1. No MRI evidence of cervical extruded disc fragment, spinal stenosis or cervical nerve root displacement. 2. Abnormal T2 bleeding or high signal intensity of the cervical spinal cord at the C2 vertebral body level with faint linear contrast enhancement. Etiology is unknown. Possible enhancing linear MS plaque. Atypical for neoplasm due to its linear enhancement and linear contour. CSF correlation may be helpful for further evaluation. Electronically Signed: Jonathon Rodriguez MD at 9:48 EST , Service support , Thoracic Spine MRI 12/04/17 06:57 IMPRESSION: Mild degenerative changes. Electronically Signed: Deangelo Alves MD at 10:45 EST Tel , Service support , Shoulder X-Ray 12/04/17 11:00 IMPRESSION: Arthritic changes of the acromioclavicular joint. Electronically Signed: Wei Kohler MD at 11:24 EST Tel [phone], Service support , Lumbar Puncture Fluoroscopy 12/04/17 14:00 IMPRESSION: Successful fluoroscopic-guided lumbar puncture. Electronically Signed: Wei Kohler MD at 12:48 EST Tel [phone], Service support , Dr. Castillo- Neurology Operations: None Procedures: - - Lumbar puncture Summary of Care Provided: The patient is a 67 year old F admitted 12/03/2017 due to left-sided leg weakness and right-sided numbness. Patient states she has had similar symptoms in the past. She resides in [facility] and has had previous workup in the past for similar symptoms. She was to follow-up with neurology as outpatient. She has a past medical history of hypertension, hypothyroidism, hyperlipidemia, type 2 diabetes mellitus, GERD, chronic kidney disease stage III. Patient complains of ongoing neck pain. MRI of brain during this admission showed no acute stroke. MRI of C-spine shows hyperintense intramedullary lesion at C2 level. This was noted on outside facility imaging as well per patient and was thought to be a cyst. She was to continue outpatient follow-up. Recommend repeat MRI of C-spine in 6 months and 1 year by patient's neurologist in [place]. Lumbar puncture was performed to rule out MS. CSF WBC, RBC, protein, glucose, total cell count unremarkable. Full CSF panel pending at discharge. Patient's neurologist will need to request records when these results are final. Low suspicion for MS. In addition to follow-up with neurologist, recommend neurology referral to spinal surgeon in patients area where she resides for continued neck pain. Patient has had improvement of symptoms with massage and chiropractor. Patient may have a component of polyneuropathy secondary to poorly controlled type 2 diabetes mellitus. A1c 8.0 %. Recommend further monitoring and adjustment by primary care physician. Other chronic medical conditions as noted above are stable at this time. General: Alert, Oriented x3, Cooperative HEENT: Atraumatic, PERRLA, EOMI, Normocephalic Neck: Supple, No JVD, Negative Carotid Bruits Lungs: Clear to auscultation, Normal air movement Cardiovascular: Regular rate, regular rhythm Abdomen: Bowel Sounds Present, Soft, Non Tender Extremities: No edema, Capillary Refill Less than 3 Seconds Skin: No rashes, No breakdown Musculoskeletal: No Tenderness to Palpation of Joints or Extremities Neurological: Cranial nerves II-XII grossly intact Psych/Mental Status: Normal Affect, Appropriate Patient seen and examined prior to discharge. Physical assessment as noted above. Neuro grossly intact. Patient is stable for discharge with the recommendations as noted above. Discharge Diet: Low fat/ Low Cholesterol, Carb Control Diet Discharge Activity: Return to Normal Activity Call your doctor if you observe: Fever of 101 or Higher, Numbness or Tingling, Shortness of breath, Dizziness, Fainting spells, Chest pain Home Medications: Medications to take at Discharge Aspirin [Aspirin, Baby] 81 mg PO DAILY@0800 12/03/17 Cetirizine HCl [Zyrtec] 10 mg PO QHS 12/03/17 Esomeprazole Mag Trihydrate [Nexium] 40 mg PO DAILY 12/03/17 Fenofibrate,Micronized [Antara] 130 mg PO DAILY 12/03/17 Hydrochlorothiazide [Hctz] 12.5 mg PO DAILY 12/03/17 Insulin Detemir [Levemir FlexPen] 50 mg SQ QHS 12/03/17 Insulin Detemir [Levemir] 20 unit SQ DAILY 12/03/17 Levothyroxine Sodium 75 mcg PO DAILY 12/03/17 Lisinopril [Zestril] 20 mg PO DAILY 12/03/17 Metformin(XR) [Glucophage Xr] 500 mg PO BIDCM 12/03/17 Mometasone Furoate [Nasonex] 1 spray NASAL QHS 12/03/17 Montelukast [Singulair] 10 mg PO QHS 12/03/17 Omeprazole 20 mg PO DAILY 12/03/17 Ranitidine [Zantac] 300 mg PO QHS 12/03/17 Rosuvastatin Calcium [Crestor] 10 mg PO QHS 12/03/17 Solifenacin Succinate [Vesicare] 10 mg PO DAILY 12/03/17 Primary Care Physician: Priti Hernandez,Out of [Primary Care Provider] - Please follow up with your Primary Care Physician in: 1 Week Please Follow Up With: [place] Neu[facility]ist When: 1-2 Weeks Disposition: Home Minutes spent on discharge:: 35 Patient Condition:: Stable Meaningful Use Info Meaningful Use Diagnoses (Choose all that apply): None applicable <Chris Augustine - Last Filed: 12/05/17 15:29> Discharge Date and Diagnosis - Secondary Discharge Diagnosis Chronic Problems Diabetes mellitus type 2 in obese (Chronic) Neck pain (Chronic) Dyslipidemia (Chronic) Urge urinary incontinence (Chronic) Hypertension (Chronic) Hypothyroidism (acquired) (Chronic) GERD (gastroesophageal reflux disease) (Chronic) Hospital Course and Treatment Summary of Care Provided: In brief, patient is a 67-year-old lady with multiple comorbidities including including diabetes mellitus type 2, hypertension hypothyroidism who presented with upper and lower extremity weakness and numbness MRI obtained was concerning for possible demyelinating disease patient admitted to a monitored bed with consultation placed to neurology. Patient underwent workup for possible multiple sclerosis including imaging studies as well as lumbar puncture results of her studies were pending at the time of discharge. Her symptoms did improve after 2 days of hospitalization discharge home instructed to follow-up with her neurologist in [facility]. Patient was also instructed to obtain copies of her medical records prior to getting discharge Hospital course as elicited above by Nilda Nash's note Total time spent in discharge process 35 minutes Code Visit Inpatient E&M: 27203 Disch Hosp
[2017-12-06 15:22] LABS: Pathologist Review Reviewed
[2017-12-08 03:06] LABS: HSV 1 By PCR Negative (Negative)
[2017-12-09 08:00] LABS: CMV by PCR Negative (Negative); HSV 2 By PCR Negative (Negative)
[2017-12-16 12:08] LABS: CAP Mandated Culture Not Indicated (.); CSF Albumin 15 mg/dL (11-48); CSF IgG 2.3 mg/dL (0.0-8.6); CSF IgG Index 0.6 (0.0-0.7); IgG Serum 1001 mg/dL (700-1600); IgG Synthesis Rate, CSF -1.2 mg/day (-9.9 TO +3.3); IgG/Alb Ratio, CSF 0.15 (0.00-0.25); Serum Albumin 3.8 g/dL (3.6-4.8)
[2017-12-16 14:44] LABS: CSF:Serum Albumin Index 4 (0-8); VDRL Cerebrospinal Fluid Non Reactive (Non Rea:<1:1)
[2017-12-16 14:53] LABS: West Nile Virus Qual by PCR Negative (.)
[2017-12-16 14:55] LABS: Enterovirus By PCR Negative
[2017-12-16 14:56] LABS: Cryptococcus Antigen CSF Negative
== END 2017-12-05 15:44 | disposition home or self-care (01) | DRG 948 ==
LOC: ED 15:57 → PCU 18:00
PROVIDERS: Physician Assistant; Psychiatry & Neurology Neurology; Admitting Provider Internal Medicine; Emergency Provider Emergency Medicine; Visit Provider Internal Medicine
DX: R53.1 Weakness (principal); N17.9 Acute kidney failure, unspecified; Z68.41 Body mass index [BMI] 40.0-44.9, adult; E11.65 Type 2 diabetes mellitus with hyperglycemia; E03.9 Hypothyroidism, unspecified; E78.5 Hyperlipidemia, unspecified; I10 Essential (primary) hypertension; E66.9 Obesity, unspecified; R20.0 Anesthesia of skin; K21.9 Gastro-esophageal reflux disease without esophagitis; N39.41 Urge incontinence; M54.2 Cervicalgia
CPT/HCPCS: 36415; 62270; 70450; 70553; 71046; 72156; 72157; 73030; 77003; 80048; 80061; 80076; 80307; 82040; 82042; 82784; 82945; 82962; 83036; 83873; 84157; 84439; 84443; 84484; 85025; 85610; 85730; 86592; 87070; 87101; 87205; 87496; 87498; 87529; 87798; 87899; 88108; 88313; 89050; 89051; 93005; 97116; 97162; 97166; 97535; 99283; A9585; J7030; A4216